=== PATIENT | female | born 1955 | race Caucasian/White ===

== ENCOUNTER 2017-06-13 10:48 | Inpatient (IN) | payer OTHER ==
[~2017-06-13] VITALS: Ht 165.1 cm; Wt 73.8 kg
--- NOTE | ~2017-06-13 | H ---
[facility] [place] [address] HISTORY AND PHYSICAL Name: ZACH CASTANEDA Room #: 308-P [facility] IN ..#: [id number] Admission: 06/13/17 Attend Phys: Michi Hanna MD Discharge: Date of : 59 Report #: [id number] THIS REPORT FOR: //name// CC: Meliton Hanna DATE OF SERVICE: 06/13/2017 CHIEF COMPLAINT: Abdominal pain. HISTORY OF PRESENT ILLNESS: The patient is a 61-year-old female who was admitted to the Emergency Room with abdominal pain. She said for about 5 days, she had some epigastric pain that felt like it radiated around the right side to her mid back. She had some nausea and loss of appetite, but no major vomiting. She had a few episodes of diarrhea that seems to have resolved as well. She has a complicated history of cholecystectomy in 2005 and 3 ERCPs post procedure with the recent being in 2014, related to right upper quadrant abdominal pain and what sounds to be common bile duct obstruction. PAST MEDICAL HISTORY: As above. PAST SURGICAL HISTORY: Unremarkable. FAMILY HISTORY: Noncontributory. SOCIAL HISTORY: She lives at home. No chronic alcohol or tobacco use. ALLERGIES: No known drug allergies. MEDICATIONS: Hydrocodone, Zoloft, gabapentin. REVIEW OF SYSTEMS: Other than the above, she denies headache, chest pain, shortness of breath, fever, chills, myalgias, arthralgias, dysuria, syncope, fall. OBJECTIVE: VITAL SIGNS: Temperature 36.8, pulse 59, respirations 16, blood pressure 116/63, O2 sat 98% on room air. GENERAL: She is awake and alert, in no distress. HEAD AND NECK: Unremarkable. LUNGS: Clear. HEART: Regular. ABDOMEN: Soft, normoactive bowel sounds. No rebound or guarding. No palpable masses. She has slight tenderness to deep palpation, epigastric, right upper quadrant. EXTREMITIES: No cyanosis, clubbing or edema. [facility] [address] [place] [address] HISTORY AND PHYSICAL Name: ZACH CASTANEDA Room #: 308-P [facility] IN [facility].#: [id number] Admission: 06/13/17 Attend Phys: Michi Hanna MD Discharge: Date of : 59 Report #: [id number] NEUROLOGIC: Intact. LABORATORY DATA: Shows fairly unremarkable urinalysis. White count is normal, bilirubin normal and LFTs are unremarkable. Lipase is normal. Abdominal ultrasound reviewed, shows nonspecific changes. ASSESSMENT: Right upper quadrant abdominal pain. PLAN: Keep her on bowel rest with IV fluids for now and the GI service will assess her too. <ELECTRONICALLY SIGNED> By: Michi Hanna MD 06/15/17 1251 [id number] Michi Hanna MD /nt
--- NOTE | ~2017-06-13 | CNG ---
[facility] [place] [address] CYTO-NONGYN REPORT PROCEDURE Name: ZACH CASTANEDA Room #: 308-P DIS IN M.R.#: [id number] Admission: 06/13/17 Date of : 59 Discharge: 06/16/17 Report #: [id number] Path Case #: [id number] CYTOPATHOLOGY REPORT COLLECTION DATE: 06/15/2017 RECEIVED DATE: 06/16/2017 SUBMITTING PHYS: Dr. Randi Ennis OTHER PHYS: Dr. Michi Pandya CLINICAL HISTORY: Abdominal pain, food intolerance. See also [id number]. SPECIMEN(S) RECEIVED: A.Esophageal brushings * * * * * * * * * * * * FINAL DIAGNOSIS: A. Esophageal brushings: - No malignant cells identified. - Reactive cellular changes, squamous cells, few glandular cells, bacteria and amorphous debris identified. PATHOLOGIST: Melissa Guerar M.D. REPORT ELECTRONICALLY SIGNED BY: Melissa Guerra M.D. DATE/TIME: 06/17/2017 16:52 * * * * * * * * * * * * GROSS PATHOLOGY: A. Esophageal brushings: The specimen is labeled "Zach Castaneda" and consists of a brush tip in fixative. One ThinPrep slide was prepared. (clt 06.16.2017) CITY AUDITOR(S): DEBBI López([facility]) INITIAL CPT CODE(S): A; 40551 Professional services performed by [facility] at [facility] [address], [place] [address] Technical services performed by [facility] at [address] [place] [address]., [address], [place] [address]. [facility] [address] [place] [address], [facility] [address] [place], [place] [address] [place] [address] [place] [address] CYTO-NONGYN REPORT PROCEDURE Name: ZACH CASTANEDA Room #: 308-P DIS IN M.R.#: [id number] Admission: 06/13/17 Date of : 59 Discharge: 06/16/17 Report #: [id number] Path Case #: [id number] PHONE: [phone] DIRECTOR: Shawn Orozco M.D. * * * END OF REPORT * * *
--- NOTE | ~2017-06-13 | S ---
[facility] [place] [address] SURGICAL PATH RPT PROCEDURE Name: ZACH CASTANEDA Room #: 308-P DIS IN M.R.#: [id number] Admission: 06/13/17 Date of : 59 Discharge: 06/16/17 Report #: [id number] Path Case #: [id number] PATHOLOGY REPORT COLLECTION DATE: 06/15/2017 RECEIVED DATE: 06/16/2017 SUBMITTING PHYS: Dr. Randi Ennis OTHER PHYS: Dr. Michi Pandya SPECIMEN(S) RECEIVED: A.Bx of gastric H pylori * * * * * * * * * * * * FINAL DIAGNOSIS: "BX of gastric H. pylori", biopsy: - Gastric mucosa with mild reactive changes and mild chronic inflammation. - Negative H. pylori immunohistochemical stain (block A1); control reacted appropriately. (CLW:jason; 06/17/2017) PATHOLOGIST: Nettie Nolasco M.D. REPORT ELECTRONICALLY SIGNED BY: Nettie Nolasco M.D. DATE/TIME: 06/17/2017 15:01 * * * * * * * * * * * * GROSS PATHOLOGY: Received in formalin labeled "Zach Castaneda BX of gastric r/o H. pylori," is a segment of vicente soft tissue measuring 0.4 cm in maximum dimension. The specimen is submitted entirely in cassette A1. (TSD; 06/16/2017) CLINICAL HISTORY: Pre-OP DX: Dysphagia Post-OP DX: Esophagitis, duodenitis of bulb INITIAL CPT CODE(S): A; 92139, 77414 Professional services performed by [facility] at [facility] [address], [place] [address] Technical services performed by [facility] at [address] [place] [id number]. [facility] [address] [place] [address] SURGICAL PATH RPT PROCEDURE Name: ZACH CASTANEDA Room #: 308-P DIS IN M.R.#: [id number] Admission: 06/13/17 Date of : 59 Discharge: 06/16/17 Report #: [id number] Path Case #: [id number] [facility] [id number] [address] [address] PHONE: [phone] DIRECTOR: Shawn Orozco M.D. * * * END OF REPORT * * *
--- NOTE | ~2017-06-13 | P ---
[facility] [place] [address] PROCEDURE REPORT Name: ZACH CASTANEDA Room #: 308-P [facility] IN M.R.#: [id number] Admission: 06/13/17 Attend Phys: Michi Hanna MD Discharge: Date of : 59 Report #: [id number] THIS REPORT FOR: //name// CC: Meliton Hanna PROCEDURE: EGD with esophageal brushings, biopsies and esophageal dilatation. INDICATION FOR PROCEDURE: This patient is a very pleasant 61-year-old white female who has had dysphagia, mid epigastric and right upper quadrant pain with normal liver enzymes. She has a history of common bile duct sludge and has dilated ducts. She is status post cholecystectomy. She has also been experiencing dysphagia. EGD is being performed to evaluate these symptoms further. Informed consent for this procedure was obtained prior to the administration of any medication. The risks of the procedure, which include bleeding, perforation, infection, complications of sedation and the possibility I could miss something have been explained to the patient and she has indicated her consent by signing. DESCRIPTION OF PROCEDURE: Propofol was slowly titrated before and during this procedure for the patient's comfort by the anesthesia service. The Ed4Un upper videoscope was introduced through the upper esophageal sphincter and advanced under direct visualization to the descending duodenum. Findings were noted on withdrawal of the scope. The duodenal mucosa appears normal in the second portion. The duodenal sweep and duodenal bulb were mildly erythematous. Pylorus: Normal mucosa. Antrum: In the antrum of the stomach, there were some antral stripes that look somewhat like a water melon stomach or gastric antral vascular ectasia, but was nonbleeding. Biopsies were obtained from the antrum for histopathology x 2 with good hemostasis noted after those biopsies. Body: Normal mucosa. Cardia and fundus: Normal mucosa. Retroflex view did not reveal any hiatal hernia. Scope was withdrawn into the esophagus. The Z-line was appropriately located at the top of the gastric folds and appeared normal. The esophageal mucosa itself appeared normal, but there was an adherent white exudate that can be removed with brush or with suctioning. I did brush this and send it for CASSANDRA prep to be ascertained we were not missing an esophageal candidiasis. The esophageal lumen itself appeared normal throughout its entirety. I do not see any extrinsically to intrinsically compressing lesions that might explain this patient's dysphagia. It was possible that this white exudate was undigested food that has never cleared her esophagus, in which case she may have an esophageal motility disorder. The scope was then advanced down into the stomach again and a guidewire was advanced through the scope. The scope was withdrawn over the guidewire and a #48-Faroese Savary was passed over the guidewire without difficulty. The guidewire and the dilator were removed then the Fujinon upper videoscope was reintroduced through the upper esophageal sphincter and advanced under direct visualization to her stomach again. Findings were noted on withdrawal of the scope. The stomach was unchanged from before. Retroflex view did not reveal any change at the cardia. The scope was [address] [address] PROCEDURE REPORT Name: CASTANEDAZACH Room #: 308-P [facility] IN ..#: [id number] Admission: 06/13/17 Attend Phys: Michi Hanna MD Discharge: Date of : 59 Report #: [id number] then withdrawn into the esophagus. The distal esophageal sphincter appeared intact. There was no blood, no abrasion, no evidence of any mucosal tearing in the entire esophagus. The scope was then withdrawn. The patient went to the recovery area in stable condition. She tolerated the procedure well. IMPRESSION: 1. Possible exudative esophagitis, this may be retained food in the esophagus that has not passed into the stomach because of poor esophageal motility. 2. Dilatation of the esophagus with a #48-Faroese Savary. I tried to pass a 51, but her esophagus would not admit a 51-Faroese Savary but a 48 went down with some DICTATION ENDS HERE <ELECTRONICALLY SIGNED> By: Randi Ennis DO 06/16/17 0539 1347 [id number] Randi Ennis DO /nt
--- NOTE | ~2017-06-13 | P ---
[facility] [place] [address] PROCEDURE REPORT Name: ZACH CASTANEDA Room #: 308-P ADM IN M.R.#: [id number] Admission: 06/13/17 Attend Phys: Michi Hanna MD Discharge: Date of : 59 Report #: [id number] THIS REPORT FOR: //name// CC: Meliton Hanna MD ADDENDUM NAME OF PROCEDURES: EGD with esophageal dilatation and biopsy. I was at the point of stating that: 1. The esophagus may be experiencing some stasis from poor motility. 2. Pre-antral erythema that is reminding me of possible watermelon stomach or gastric antral vascular ectasia. 3. Mild erythema of the postduodenal bulb area. Biopsies are pending from the antrum and brushings are pending from the esophagus. RECOMMENDATIONS: To await these biopsies and brushings. I think that perhaps the gastric emptying study might be helpful as well to evaluate further this abdominal pain in the epigastrium and right upper quadrant. Thank you very much once again for allowing me to participate in her care, Dr. Hanna. She may benefit from esophageal motility studies which can be done at [facility] or other facilities. We do not have esophageal manometry here at [place]. <ELECTRONICALLY SIGNED> By: Randi Ennis DO 06/16/17 0539 1349 54 Randi Ennis DO /nt
[~2017-06-13 10:48] MED LIST: NEURONTIN 300300 M1 PO; NORCO 5-325 TA1 EACH PO; ZOLOFT100 MG PO
[2017-06-13 10:49] VITALS: BP 125/82
[2017-06-13 11:55] LABS: ANION GAP 8 mmol/L (7-16); BUN 9 mg/dL (7-18); CALCIUM 9.4 mg/dL (8.5-10.1); CHLORIDE 102 mmol/L (98-107); CO2 29 mmol/L (21-32); CREATININE 0.9 mg/dL (0.6-1.0); GLUCOSE 93 mg/dL (74-106); POTASSIUM 4.1 mmol/L (3.5-5.1); SODIUM 139 mmol/L (136-145)
[2017-06-13 11:56] LABS: ABSOLUTE NEUTROPHILS 2.9 thou/uL (1.4-8.2); BASOPHILS 0.8 % (0.0-2.0); EOSINOPHILS 1.6 % (0.0-3.0); HEMATOCRIT 40.9 % (37.0-47.0); HEMOGLOBIN 14.4 gm/dL (12.0-15.0); LYMPHOCYTES 20.3 % (24.0-44.0); MCH 31.8 pg (26.0-34.0); MCHC 35.2 g/dL (28.0-37.0); MCV 90.3 fL (80.0-100.0); MONOCYTES 7.5 % (1.0-8.0); PLATELET COUNT 221 thou/uL (150-400); POLYS 69.8 % (36.0-66.0); RBC 4.53 mil/uL (4.20-5.00); RDW 12.6 % (10.5-14.5); WBC 4.1 thou/uL (4.0-11.0)
[2017-06-13 11:57] LABS: MANUAL DIFF NO
[2017-06-13 11:57] LABS: URINE BILIRUBIN NEGATIVE (Negative); URINE BLOOD 2+ (Negative); URINE COLOR YELLOW; URINE GLUCOSE-RANDOM* NEGATIVE (Negative); URINE KETONES NEGATIVE (Negative); URINE LEUKOCYTES-REFLEX NEGATIVE (Negative); URINE PROTEIN (DIPSTICK) NEGATIVE (Negative); URINE SPECIFIC GRAVITY <= 1.005 (1.003-1.035); URINE UROBILINOGEN 0.2 E.U./dl (0.2-1.0)
[2017-06-13 12:01] LABS: ALBUMIN 4.1 g/dL (3.4-5.0); ALKALINE PHOSPHATASE 108 U/L (46-116); DIRECT BILIRUBIN < 0.1 mg/dL (<0.1-0.3); SGOT 42 U/L (15-37); SGPT 31 U/L (30-65); TOTAL BILIRUBIN 0.5 mg/dL (<0.1-1.0)
[2017-06-13 12:12] LABS: CASTS None Seen /LPF (None Seen); CRYSTALS None Seen /LPF (None Seen); SQUAMOUS None Seen /LPF (0-3); URINE RBC 3-10 Few /HPF (0-2); URINE WBC-REFLEX None Seen /HPF (0-5)
[2017-06-13 15:43] VITALS: BP 115/62
[2017-06-13 15:55] VITALS: BP 116/46; BP 130/69
[2017-06-13 19:09] VITALS: BP 113/54
[2017-06-14 00:16] VITALS: BP 112/75
[2017-06-14 03:40] VITALS: BP 116/72
[2017-06-14 08:00] VITALS: BP 116/63
[2017-06-14 11:30] VITALS: BP 119/67
[2017-06-14 20:05] VITALS: BP 111/73
[2017-06-15 04:25] VITALS: BP 155/68
[2017-06-15 04:45] VITALS: BP 106/66
[2017-06-15 05:56] LABS: ALBUMIN 3.4 g/dL (3.4-5.0); CALCIUM 8.9 mg/dL (8.5-10.1); CREATININE 0.6 mg/dL (0.6-1.0); POTASSIUM 3.8 mmol/L (3.5-5.1); TOTAL BILIRUBIN 0.4 mg/dL (<0.1-1.0); TOTAL PROTEIN 6.8 g/dL (6.4-8.2)
[2017-06-15 07:46] VITALS: BP 121/65
[2017-06-15 16:00] VITALS: BP 115/68
[2017-06-15 19:33] VITALS: BP 122/77
[2017-06-16 04:01] LABS: HEMATOCRIT 37.8 % (37.0-47.0); HEMOGLOBIN 13.1 gm/dL (12.0-15.0); MCH 31.5 pg (26.0-34.0); MCHC 34.6 g/dL (28.0-37.0); MCV 91.2 fL (80.0-100.0); RBC 4.15 mil/uL (4.20-5.00); RDW 12.5 % (10.5-14.5); WBC 4.1 thou/uL (4.0-11.0)
[2017-06-16 04:32] LABS: ALBUMIN 3.7 g/dL (3.4-5.0); CREATININE 0.8 mg/dL (0.6-1.0); POTASSIUM 3.8 mmol/L (3.5-5.1); TOTAL BILIRUBIN 0.5 mg/dL (<0.1-1.0)
[2017-06-16 05:09] VITALS: BP 105/68
[2017-06-16 08:59] VITALS: BP 116/64
[2017-06-16] MEDS ORDERED: ONDANSETRON HCL4 M2 PO (09:36)
[2017-06-16 14:25] VITALS: BP 116/64
[2017-06-16] MEDS ORDERED: PRILOSEC OTC20 MG PO (15:56)
== END 2017-06-16 16:30 | disposition home or self-care (01) | DRG 392 ==
LOC: ER 10:48 → 3N 15:10 → EROBS 15:10 → 3N 15:55
PROVIDERS: Emergency Medicine; Internal Medicine Geriatric Medicine
PROC: 0DB68ZX Excision of Stomach, Via Natural or Artificial Opening Endoscopic, Diagnostic (ICD-10-PCS; principal; 2017-06-15)
PROC: 0DB58ZX Excision of Esophagus, Via Natural or Artificial Opening Endoscopic, Diagnostic (ICD-10-PCS; principal; 2017-06-15)
PROC: 0D758ZZ Dilation of Esophagus, Via Natural or Artificial Opening Endoscopic (ICD-10-PCS; principal; 2017-06-15)
DX: K20.9 Esophagitis, unspecified (principal); R10.11 Right upper quadrant pain; M79.7 Fibromyalgia; F32.9 Major depressive disorder, single episode, unspecified; Z90.49 Acquired absence of other specified parts of digestive tract; Z91.048 Other nonmedicinal substance allergy status; R13.10 Dysphagia, unspecified
CPT/HCPCS: 10094; 62110; 62900; 70005

== ENCOUNTER → 2017-08-03 | Outpatient (CLI) | payer OTHER ==
[~2017-08-03] MED LIST changes: +ONDANSETRON HCL4 M2 PO; +PRILOSEC OTC20 MG PO
== END ==
LOC: MRI 07:01
DX: R10.11 Right upper quadrant pain (principal)